=== PATIENT | male | born 2005 | race African-American/Black ===

== ENCOUNTER 2024-03-22 16:29 | Emergency (ER) | payer OTHER, SELFPAY ==
[2024-03-22 16:33] VITALS: BP 144/85; PULSE 56; RESP 16; TEMP 37.1; O2SAT 99; BMI 21.9
--- NOTE | 2024-03-22 16:34 | DI.RAD.S_ITS ---
PROCEDURE: XR CLAVICLE LT INDICATIONS: fall onto shoulder TECHNIQUE: 2 views of the clavicle were acquired. COMPARISON: None. FINDINGS: Bones: No fractures or dislocations. No widening of the AC joint. No suspicious bony lesions. Soft tissues: No suspicious soft tissue calcifications. IMPRESSION: No clavicle fracture demonstrated. Additional radiographs of the left shoulder could be considered for further evaluation. Dictated by: Pablo Guillory M.D. on 03/22/2024 at 17:28 Approved by: Pablo Guillory M.D. on 03/22/2024 at 17:29
--- NOTE | 2024-03-22 18:35 | ED.UPPEXIN ---
HPI - Extremity Injury (Upper) <Gertrude Salazar PA-C - Last Filed: 03/23/24 11:02> General Chief Complaint: Extremity Injury, Upper Stated Complaint: Clavical Fx Time Seen by Provider: 03/22/24 18:31 Source: EMS Mode of arrival: EMS History of Present Illness HPI narrative: Patient is a pleasant 18-year-old male right-hand dominant who presents to the emergency department with left shoulder discomfort and pain. Patient fell while at work. Landing on the left upper extremity. Patient states that he was working in a bathroom, he had just recently hung a mirror, the mirror fell and kind of landed on him. He had not sustained any injury from mirror. Patient then states that he had been mopping some floors in the bathroom, he slipped and fell on a wet floor, landing onto his left side left shoulder left elbow. He had pain immediately to the left shoulder and left elbow. He was placed in a sling prior to being seen here in the emergency department. He did not take anything for pain, they did not apply anything such as ice to the extremity. He has no other further complaints. He denies loss of consciousness, he denies any head pain. He is right-hand dominant. Related Data Allergies Allergy/AdvReac Type Severity Reaction Status Date / Time No Known Drug Allergies Allergy Verified 03/22/24 16:26 Review of Systems <Gertrude Salazar PA-C - Last Filed: 03/23/24 11:02> Review of Systems Narrative: Negative except as above Musculoskeletal Comments: Left upper extremity pain Patient History <Gertrude Salazar PA-C - Last Filed: 03/23/24 11:02> Social History Smoking Status: Never smoker Smoking Status: Never smoker Substance Use Type: does not use Exam <Gertrude Salazar PA-C - Last Filed: 03/23/24 11:02> Initial Vital Signs Initial Vital Signs: Vital Signs Temperature 98.7 F 03/22/24 16:33 Pulse Rate 56 L 03/22/24 16:33 Respiratory Rate 16 03/22/24 16:33 Blood Pressure 144/85 H 03/22/24 16:33 Pulse Oximetry 99 03/22/24 16:33 Oxygen Delivery Method Room Air 03/22/24 16:33 Reviewed Const General: cooperative, healthy appearing, comfortable, well developed, well groomed, No acute distress, No in distress and No anxious Nutritional Appearance: average body habitus and well nourished Orientation: Orientation Eyes General: Yes appearance normal, both eyes and all related structures Eyelids: eyelids normal Conjunctivae: conjunctivae normal Pupils: PERRL EOM: EOM intact bilaterally Skin General: no rashes or lesions noted, No ecchymosis and No erythema Neuro General: patient alert, patient awake, patient oriented x3, oriented, gait normal and CN's II-XI intact bilaterally Cognition: normal cognition Speech: speech normal Gait: normal gait Extrem Other: Bilateral lower extremities right upper extremities full range of motion, pulses are present, cap refill is preserved. Left upper extremity is in a sling. X-rays reviewed. No acute fractures noted on x-ray. Exam of the left upper extremity, no pain upon palpation evaluation of the hand, wrist, forearm. Cap refill is preserved. Pulses are present. Patient has some discomfort and pain with palpation to the elbow, no obvious deformities, no bruising, no soft tissue swelling. Patient has some discomfort with palpation of the humerus, no obvious deformity, no soft tissue swelling, patient has pain over the clavicle area and into the left shoulder. Again no obvious deformity, no soft tissue swelling, no deformity. The sling is removed. Movement is evaluated pain. The patient is able to move under active and passive range of motion. Some discomfort upon abduction. An internal external rotation. However the patient is able to accomplish these movements. <Lisset Downs DO - Last Filed: 04/01/24 07:02> Initial Vital Signs Initial Vital Signs: Vital Signs Temperature 98.7 F 03/22/24 16:33 Pulse Rate 56 L 03/22/24 16:33 Respiratory Rate 16 03/22/24 16:33 Blood Pressure 144/85 H 03/22/24 16:33 Pulse Oximetry 99 03/22/24 16:33 Oxygen Delivery Method Room Air 03/22/24 16:33 Course <Gertrude Salazar PA-C - Last Filed: 03/23/24 11:02> Orders Ordered: ED Orders 03/22/24 16:34 XR clavicle LT Stat Vital Signs Vital signs: Vital Signs - 8 hr 03/22/24 16:33 Temperature 98.7 F Pulse Rate 56 L Respiratory Rate 16 Blood Pressure 144/85 H Pulse Oximetry 99 Oxygen Delivery Method Room Air Reviewed <Lisset Downs DO - Last Filed: 04/01/24 07:02> Orders Ordered: ED Orders 03/22/24 16:34 XR clavicle LT Stat Vital Signs Vital signs: Vital Signs - 8 hr 03/22/24 16:33 Temperature 98.7 F Pulse Rate 56 L Respiratory Rate 16 Blood Pressure 144/85 H Pulse Oximetry 99 Oxygen Delivery Method Room Air MDM - Extremity Injury (Upper) <Gertrude Salazar PA-C - Last Filed: 03/23/24 11:02> Imaging Data Extremity x-ray #1: Radiologist's Impression: [address] [address] XRay Report Signed Patient: Noe Stanley MR#: [id number] : 2005 Acct:[id number] Age/Sex: 18 / M Date of Service: 03/22/24 Loc: ED Accession Number: [id number] Procedure: XR clavicle LT Ordering Provider: Lisset Downs D.O. PROCEDURE: XR CLAVICLE LT INDICATIONS: fall onto shoulder TECHNIQUE: 2 views of the clavicle were acquired. COMPARISON: None. FINDINGS: Bones: No fractures or dislocations. No widening of the AC joint. No suspicious bony lesions. Soft tissues: No suspicious soft tissue calcifications. IMPRESSION: No clavicle fracture demonstrated. Additional radiographs of the left shoulder could be considered for further evaluation. Dictated by: Pablo Guillory M.D. on 03/22/2024 at 17:28 Approved by: Pablo Guillory M.D. on 03/22/2024 at 17:29 [facility] Narrative Medical decision making narrative: Pleasant 18-year-old male presents to the emergency room department with his mother after he sustained a fall at work. Patient complained of pain over his clavicle and left shoulder. X-ray of the clavicle and the AC joint into the shoulder negative for any acute fractures. His exam is negative for substantial findings. He has some limited range of motion upon exam due to discomfort and pain. X-rays negative for any acute fractures. Education about x-ray being negative for fracture. Supportive therapy for fall, contusion, shoulder Sprain. Reviewed pendulum exercises with the patient. [id number] supportive therapy with nonsteroidals. His L and I paperwork was filled out. The patient wanted to return back to work the following day. Patient discharged in stable condition. Differential diagnosis; fall, shoulder contusion, shoulder sprain. Discharge Plan Departure Patient Disposition: Home Clinical Impression: Fall Qualifiers: Encounter type: initial encounter Qualified Code(s): W19.XXXA - Unspecified fall, initial encounter Sprain of left shoulder Qualifiers: Encounter type: initial encounter Shoulder sprain type: unspecified sprain Qualified Code(s): S43.402A - Unspecified sprain of left shoulder joint, initial encounter Instructions: DI for Shoulder Sprain Activity Restrictions/Additional Instructions: Your x-rays negative fracture. Slow range of motion, rest, ice, pendulum exercises, [id number] nonsteroidals. Tylenol 650 mg every 8 hours, Motrin/ibuprofen 600 mg every 8 hours. Stand Alone Forms: Patient Portal/API, Work Release Note ED Sign-out <Lisset Downs DO - Last Filed: 04/01/24 07:02> Cosign ED Attending Coscaroature Attestation: I was immediately available in the department for consultation.
[2024-03-22 18:55] VITALS: BP 146/63; PULSE 55; RESP 18; O2SAT 100
== END 2024-03-22 19:02 | disposition home or self-care (01) ==
PROVIDERS: Emergency Provider Physician Assistant
DX: S43.402A Unspecified sprain of left shoulder joint, initial encounter (principal); W01.0XXA Fall on same level from slipping, tripping and stumbling without subsequent striking against object, initial encounter
CPT/HCPCS: 73000; 99281; 99283

== ENCOUNTER 2025-01-21 14:58 | Emergency (ER) | payer SELFPAY ==
[2025-01-21 15:05] VITALS: BP 139/79; PULSE 74; RESP 18; TEMP 37.3; O2SAT 98; BMI 20.3
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
--- NOTE | 2025-01-21 15:17 | DI.RAD.S_ITS ---
PROCEDURE: XR PELVIS 1-2V INDICATIONS: trauma TECHNIQUE: 1 view(s) of the pelvis acquired. COMPARISON: None. FINDINGS: Bones: No fractures or dislocations. No suspicious bony lesions. Soft tissues: Visualized bowel gas pattern is normal. No suspicious soft tissue calcifications. IMPRESSION: No acute bony abnormality. Dictated by: Mina Gonzalez M.D. on 01/21/2025 at 16:12 Approved by: Mina Gonzalez M.D. on 01/21/2025 at 16:12
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
--- NOTE | 2025-01-21 15:18 | EKG_ITS ---
[address] [address] Test Date: 2025-01-21 Pat Name: Noe Stanley Department: Room: Gender: Male Office Manager: ROSHNI : 2005 Requested By: Order Number: [id number] Reading MD: Rolly Myles Measurements Intervals [place] Rate: 63 P: 59 VA: 126 QRS: 62 QRSD: 90 T: 71 QT: 356 QTc: 364 Interpretive Statements Normal sinus rhythm with sinus arrhythmia Electronically Signed On 01-22-2025 10:18:45 PDT by Rolly Myles
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
[2025-01-21 15:44] VITALS: BP 138/78; PULSE 71; O2SAT 100
[2025-01-21 16:00] VITALS: BP 134/80; PULSE 64; O2SAT 96
[2025-01-21 16:30] VITALS: BP 130/59; PULSE 72; O2SAT 100
[2025-01-21 17:00] VITALS: BP 120/69; PULSE 61; O2SAT 99
[2025-01-21 17:24] VITALS: BP 126/88; PULSE 62; O2SAT 98
== END 2025-01-21 17:30 | disposition home or self-care (01) ==
PROVIDERS: Emergency Provider Family Medicine
DX: S06.0X1A Concussion with loss of consciousness of 30 minutes or less, initial encounter (principal); V86.95XA Unspecified occupant of 3- or 4- wheeled all-terrain vehicle (ATV) injured in nontraffic accident, initial encounter
CPT/HCPCS: 36415; 70450; 72170; 73610; 93005; 99284